=== PATIENT | female | born 2000 | race Caucasian/White ===

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

== ENCOUNTER 2021-01-29 13:33 | Emergency (ER) | payer OTHER ==
[~2021-01-29] VITALS: Ht 160 cm; Wt 60.5 kg
[2021-01-29 13:48] VITALS: Ht 160 cm; Wt 60.5 kg
[2021-01-29] MEDS ORDERED: BUPROPION HCL75 MG PO (13:48)
[2021-01-29] MEDS ORDERED: DICLOFENAC SODI50 MG PO (16:56)
[2021-01-29] MEDS ORDERED: AUGMENTIN 875-11 TAB PO (16:56)
[2021-01-29] MEDS ORDERED: HYDROCODON-ACE1 EAC7 PO (16:56)
[2021-01-30] MEDS ORDERED: MEDROXYPROGESTERONE IM (10:33)
[2021-01-30 10:41] VITALS: Ht 160 cm; Wt 60.5 kg
[2021-01-30] MEDS ORDERED: HYDROCODON-ACE1 EAC7 PO (13:52)
== END 2021-01-29 17:33 | disposition home or self-care (01) ==
LOC: D.ER 13:33
DX: S01.81XA Laceration without foreign body of other part of head, initial encounter (principal); S01.512A Laceration without foreign body of oral cavity, initial encounter; S61.012A Laceration without foreign body of left thumb without damage to nail, initial encounter; W26.0XXA Contact with knife, initial encounter; R55 Syncope and collapse

== ENCOUNTER 2021-01-30 09:38 | Day surgery (SDC) | payer OTHER ==
[~2021-01-30] VITALS: Ht 160 cm; Wt 60.3 kg
[~2021-01-30 09:38] MED LIST: AUGMENTIN 875-11 TAB PO; BUPROPION HCL75 MG PO; DICLOFENAC SODI50 MG PO; HYDROCODON-ACE1 EAC7 PO
[2021-01-30 10:02] LABS: HEMATOCRIT 42.5 % (36.0-48.0); MCH 28.3 pg (26.0-34.0); MCHC 32.8 g/dL (31.0-37.0); MCV 86.2 fL (80.0-100.0); MEAN PLATELET VOLUME 7.7 fL (7.4-10.4); RBC 4.94 10x6/uL (4.00-5.40); RDW 13.7 % (11.5-14.5); WBC 9.7 10x3/uL (4.8-10.8)
[2021-01-30 10:26] LABS: HCG SERUM NEGATIVE (NEGATIVE)
[2021-01-30] MEDS ORDERED: MEDROXYPROGESTERONE IM (10:33)
[2021-01-30 10:41] VITALS: Ht 160 cm; Wt 60.3 kg
--- NOTE | 2021-01-30 10:55 | NUR ---
PT'S SUICIDE RISK SCREENING SCORE WAS A 2. PT STATES SHE IS NOT HAVING ANY SUICIDAL THOUGHTS AT THIS TIME, IS ON [employer] AND IS SEEING A COUNSELOR EVERY 3 MONTHS THROUGH [facility]. DENIES FURTHER NEEDS AT THIS TIME.
[2021-01-30] MEDS ORDERED: HYDROCODON-ACE1 EAC7 PO (13:52)
--- NOTE | 2021-01-30 16:01 | NUR ---
1530 - IV D/C'D WITH TIP INTACT. UP TO BATHROOM TO VOID AND DRESS FOR DISCHARGE.
--- NOTE | 2021-01-30 16:02 | NUR ---
1555 - PATIENT DISCHARGED VIA WHEELCHAIR TO PRIVATE CAR. SLING IN PLACE TO LEFT ARM.
--- NOTE | 2021-01-31 06:35 | OP ---
PATIENT NAME: WILI CHERRY MEDICAL RECORD: [id number] :01 LOCATION:[facility] ADMISSION DATE: SURGEON: NABEEL NOVOA DO DATE OF OPERATION: 01/30/2021 PROCEDURE PERFORMED: Left thumb flexor tendon repair. PREOPERATIVE DIAGNOSIS: Left thumb flexor tendon laceration. POSTOPERATIVE DIAGNOSIS: Left thumb flexor tendon laceration. INDICATIONS: Ms. Cherry is a 20-year-old right-hand dominant female who was cutting something with a knife and it went right through her left thumb at the joint on her volar side, severing her flexor tendon right at the IP joint and just slightly proximal. This happened yesterday. She was seen in the ER. They closed it up and she was seen in the clinic this morning ____ for surgery today. I informed her and her parents the risks of this including infection, bleeding, loss of motion, retear, continued pain and need for other surgeries and she signed the consent. SURGEON: Nabeel Novoa DO DESCRIPTION OF PROCEDURE: The patient was given a block by anesthesia in the preoperative area. She was taken to the operative suite and laid in supine position. Given general anesthetic and LMA was placed. She was given a gram of Ancef preoperatively. Left upper extremity was then prepped and draped in sterile fashion. Timeout was performed. Everyone was in agreeance with the correct side, site, patient, and procedure. I then began by exsanguinating the left upper extremity, tourniquet was inflated to 250 mmHg, it was up for about 15 minutes. I then made an incision on the ulnar side going distally and in the radial side going proximally opening it up and once I found the two tendon ends distally and proximally, I pulled them together and stuck a 25-gauge needle and hold them in place and then did a modified Landeros stitch to pull them together and that was with a 4-0 Ethibond and then used a 6-0 Prolene and did a running-locking stitch circumferentially around it and tied it back down getting good end-to-end repair with zero gapping, essentially no gapping. I then ranged the thumb and did not see any gapping whatsoever. I then let the tourniquet down and closed the skin with 4-0 nylon in a horizontal mattress and corner stitch fashion. She was then cleaned and dressed with Adaptic, 4 x 4s, cast padding, and a thumb spica splint was placed. She was awakened and taken to recovery in stable condition. BLOOD LOSS: Minimal. COMPLICATIONS: None. TRANSINT:[id number] Voice Confirmation ID: [id number] DOCUMENT ID: [id number] OPERATIVE REPORT [id number] WILI CHERRY MICHAEL D, DO at 0635 CC: [id number] DICTATION DATE: 01/30/21 1354 MISSILE INSPECTOR: 01/30/21 1458 [facility] 01/30/21 [facility] [address] [place] [address]
== END 2021-01-30 15:55 | disposition home or self-care (01) ==
LOC: D.OPS 09:38
PROVIDERS: Anesthesiology; ATTEND Orthopaedic Surgery
DX: S66.022A Laceration of long flexor muscle, fascia and tendon of left thumb at wrist and hand level, initial encounter (principal); X58.XXXA Exposure to other specified factors, initial encounter